=== PATIENT | female | born 1970 | race Hispanic/Latino ===

== ENCOUNTER 2019-08-28 09:20 | Emergency (ER) | payer OTHER ==
[2019-08-28] MEDS ORDERED: ACETAMINOPHEN EXTRA STRENGTH 500 MG TABLET ONE (10:18)
[2019-08-28] MEDS ORDERED: DIAZEPAM 5 MG TABLET ONE (10:18)
== END 2019-08-28 11:18 | disposition home or self-care (01) ==
LOC: EDH 09:20
DX: S16.1XXA Strain of muscle, fascia and tendon at neck level, initial encounter (principal); S76.012A Strain of muscle, fascia and tendon of left hip, initial encounter; S76.011A Strain of muscle, fascia and tendon of right hip, initial encounter; M43.12 Spondylolisthesis, cervical region; V59.40XA Driver of pick-up truck or van injured in collision with unspecified motor vehicles in traffic accident, initial encounter; Y93.89 Activity, other specified; Y92.89 Other specified places as the place of occurrence of the external cause; Y99.8 Other external cause status
CPT/HCPCS: 72040